=== PATIENT | male | born 1975 | race Caucasian/White ===

== ENCOUNTER 2018-05-17 13:03 | Emergency (ER) | payer MEDICARE, OTHER ==
[~2018-05-17] VITALS: Ht 167.6 cm; Wt 105.0 kg
[~2018-05-17 13:03] MED LIST: CYMBALTA60 MG PO; ELAVIL25 M1 PO; GABAPENTIN600 MG PO; GABAPENTIN800 MG PO; IMITREX50 M1 PO; TESTOSTERONE IM
[2018-05-17] MEDS ORDERED: SINGULAIR10 MG PO (13:11)
[2018-05-17] MEDS ORDERED: FEXOFENADINE60 MG PO (13:11)
[2018-05-17] MEDS ORDERED: AMITRIPTYLIN100 MG PO (13:12)
[2018-05-17] MEDS ORDERED: LYRICA150 MG PO (13:12)
[2018-05-17] MEDS ORDERED: [UNRECOGNIZED DRUG - OTHER] PO (13:14)
[2018-05-17] MEDS ORDERED: PROAIR HFA108 MCG/AC PO (14:30)
[2018-05-17] MEDS ORDERED: DOXYCYC MONO100 M2 PO (14:30)
[2018-05-17 14:59] VITALS: BP 141/84
== END 2018-05-17 14:59 | disposition home or self-care (01) ==
LOC: ED 13:03
DX: J06.9 Acute upper respiratory infection, unspecified (principal); R05 Cough; R50.9 Fever, unspecified; F17.200 Nicotine dependence, unspecified, uncomplicated; M79.7 Fibromyalgia

== ENCOUNTER 2018-05-20 18:10 | Emergency (ER) | payer MEDICARE, OTHER ==
[~2018-05-20] VITALS: Ht 167.6 cm; Wt 112.0 kg
[~2018-05-20 18:10] MED LIST changes: +AMITRIPTYLIN100 MG PO; +DOXYCYC MONO100 M2 PO; +FEXOFENADINE60 MG PO; +LYRICA150 MG PO; +PROAIR HFA108 MCG/AC PO; +SINGULAIR10 MG PO; +[UNRECOGNIZED DRUG - OTHER] PO
[2018-05-20] MEDS ORDERED: ZPAK PO (20:04)
[2018-05-20] MEDS ORDERED: ROBITUSSIN AC10 ML PO (20:04)
[2018-05-20 20:15] VITALS: BP 146/91
== END 2018-05-20 20:18 | disposition home or self-care (01) ==
LOC: ED 18:10
DX: J06.9 Acute upper respiratory infection, unspecified (principal); M79.7 Fibromyalgia; F17.200 Nicotine dependence, unspecified, uncomplicated; Z87.820 Personal history of traumatic brain injury

== ENCOUNTER 2019-01-09 06:44 | Emergency (ER) | payer MEDICARE, OTHER ==
[~2019-01-09] VITALS: Ht 167.6 cm; Wt 110.0 kg
[~2019-01-09 06:44] MED LIST changes: +ROBITUSSIN AC10 ML PO; +ZPAK PO
[2019-01-09] MEDS ORDERED: CORTISPORIN OTI10 M2 AU (07:12)
[2019-01-09] MEDS ORDERED: AMOXICILLIN500 MG PO (07:12)
[2019-01-09] MEDS ORDERED: TORADOL PO (07:12)
[2019-01-09 07:19] VITALS: BP 142/92
== END 2019-01-09 07:22 | disposition home or self-care (01) ==
LOC: ED 06:44
DX: H66.92 Otitis media, unspecified, left ear (principal); H60.92 Unspecified otitis externa, left ear

== ENCOUNTER 2019-07-10 | Emergency (ER) | payer MEDICARE, OTHER ==
[~2019-07-10] MED LIST changes: +AMOXICILLIN500 MG PO; +CORTISPORIN OTI10 M2 AU; +TORADOL PO
[2019-07-10 19:51] LABS: IMMATURE GRANULOCYTES 0.3 % (0.0-5.0); MEAN CELL VOLUME 92.7 fL CALC (80.0-100.0); MEAN CORPUSCULAR HGB 31.1 pG CALC (26.0-32.0); MEAN CORPUSCULAR HGB CONC 33.6 g/L CALC (32.0-36.0); NEUT# 8.19 thou/uL (1.82-7.42); RED BLOOD COUNT 5.33 mill/uL (4.70-6.10); RED CELL DISTRI WIDTH 13.2 % (11.5-15.5)
[2019-07-10 19:54] LABS: HEMATOCRIT 49.4 % (39.0-50.0); HEMOGLOBIN 16.6 g/dl (14.0-18.0)
[2019-07-10 20:01] LABS: ALBUMIN 4.6 g/dL (3.2-5.0); ALKALINE PHOSPHATASE 50 u/l (38-126); AMYLASE 37 u/l (30-110); BILIRUBIN, TOTAL 0.4 mg/dL (0.0-1.4); BUN 17 mg/dL (9-20); BUN/CREATININE RATIO 19 (12-20 (CALC)); CHLORIDE 96 mmol/l (95-108); CPK 149 u/l (52-200); CREATININE 0.9 mg/dL (0.7-1.3); GFR > 60 ML/MIN (>=60 (CALC)); GFR FOR AFR.AMER. > 60 ML/MIN (>=60 (CALC)); LIPASE 38 u/l (23-300); POTASSIUM 4.1 mmol/l (3.5-5.1); SGOT/AST 30 u/l (17-59); SODIUM 135 mmol/l (137-146); TOTAL PROTEIN 8.4 g/dL (6.3-8.2)
[2019-07-10 20:03] LABS: ANION GAP 14 (6-22 (CALC)); CARBON DIOXIDE 29 mmol/l (22-30)
[2019-07-10 20:10] LABS: ACT PARTIAL THROMBO TIME 24.9 SECONDS (20.0-32.5); D-DIMER 0.27 mg/L (0.19-0.60); PROTHROMBIN TIME 10.6 SECONDS (9.0-12.5)
[2019-07-10 20:14] LABS: MYOGLOBIN 61 ng/mL (0 - 121)
[2019-07-10 20:32] LABS: TSH, 3RD GENERATION 2.16 uIU/mL (0.47 - 4.68)
[2019-07-10 21:36] LABS: URINE BILIRUBIN - DIPSTICK NEGATIVE (NEGATIVE); URINE BLOOD DIPSTICK NEGATIVE (NEGATIVE); URINE COLOR YELLOW; URINE GLUCOSE - DIPSTICK NEGATIVE (NEGATIVE); URINE KETONE NEGATIVE (NEGATIVE); URINE LEUK ESTERASE NEGATIVE (NEGATIVE); URINE NITRITE - DIPSTICK NEGATIVE (Negative); URINE PH 5.5 (4.5-8.0); URINE PROTEIN - DIPSTICK NEGATIVE (NEG-TRACE); URINE UROBILINOGEN - DIPSTICK 0.2 E.U./dL (0.2)
[2019-07-10 21:47] LABS: BARBITURATES NEGATIVE (NEGATIVE); COCAINE NEGATIVE (NEGATIVE); METHADONE NEGATIVE (NEGATIVE); OXCYCODONE NEGATIVE (NEGATIVE); TETRAHYDROCANNABIONOL NEGATIVE (NEGATIVE); TRICYLIC ANTIDEPRESSANTS POSITIVE (NEGATIVE)
== END 2019-07-10 22:17 | disposition home or self-care (01) ==
PROVIDERS: Family Medicine
DX: R53.1 Weakness (principal); R53.82 Chronic fatigue, unspecified; M79.7 Fibromyalgia; R06.02 Shortness of breath

== ENCOUNTER 2019-10-07 21:50 | Observation (INO) | payer MEDICARE, OTHER ==
[~2019-10-07] VITALS: Ht 170.2 cm; Wt 117.0 kg
--- NOTE | 2019-10-07 22:40 | NUR ---
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
[2019-10-07 23:27] LABS: HEMATOCRIT 46.2 % (39.0-50.0); HEMOGLOBIN 15.9 g/dl (14.0-18.0); IMMATURE GRANULOCYTES 0.3 % (0.0-5.0); MEAN CELL VOLUME 90.9 fL CALC (80.0-100.0); MEAN CORPUSCULAR HGB 31.3 pG CALC (26.0-32.0); MEAN CORPUSCULAR HGB CONC 34.4 g/dL CAL (32.0-36.0); NEUT# 13.13 thou/uL (1.82-7.42); RED BLOOD COUNT 5.08 mill/uL (4.70-6.10)
[2019-10-07 23:31] LABS: URINE BILIRUBIN - DIPSTICK NEGATIVE (NEGATIVE); URINE BLOOD DIPSTICK NEGATIVE (NEGATIVE); URINE COLOR YELLOW; URINE GLUCOSE - DIPSTICK NEGATIVE (NEGATIVE); URINE KETONE NEGATIVE (NEGATIVE); URINE LEUK ESTERASE NEGATIVE (NEGATIVE); URINE NITRITE - DIPSTICK NEGATIVE (Negative); URINE PROTEIN - DIPSTICK NEGATIVE (NEG-TRACE); URINE SPECIFIC GRAVITY 1.025; URINE UROBILINOGEN - DIPSTICK 0.2 E.U./dL (0.2)
[2019-10-07 23:39] LABS: ALBUMIN 4.4 g/dL (3.2-5.0); ALKALINE PHOSPHATASE 52 u/l (38-126); ANION GAP 15 (6-22 (CALC)); BILIRUBIN, TOTAL 0.5 mg/dL (0.0-1.4); BUN 24 mg/dL (9-20); BUN/CREATININE RATIO 25 (12-20 (CALC)); CARBON DIOXIDE 26 mmol/l (22-30); CHLORIDE 97 mmol/l (95-108); GFR > 60 ML/MIN (>=60 (CALC)); GFR FOR AFR.AMER. > 60 ML/MIN (>=60 (CALC)); LIPASE 55 u/l (23-300); POTASSIUM 4.2 mmol/l (3.5-5.1); SGOT/AST 26 u/l (17-59); SODIUM 134 mmol/l (137-146); TOTAL PROTEIN 7.9 g/dL (6.3-8.2)
[2019-10-07 23:48] LABS: AMYLASE < 30 u/l (30-110)
--- NOTE | 2019-10-07 23:58 | NUR ---
PT REPORTS LESS PAIN FEELING BETTER TO CT
--- NOTE | 2019-10-08 00:33 | NUR ---
PAIN HAS RESOLVED.NO NAUSEA OR VOMITING W/P/D SKIN
--- NOTE | 2019-10-08 01:21 | NUR ---
PHONE REPORT TO NURSE WEST IN MED OVERFLOW
--- NOTE | 2019-10-08 01:25 | NUR ---
PT TRANSPORTED TO [facility] OVERFL[facility] ICU IN IMPROVED STABLE CONDITION
[2019-10-08 01:30] VITALS: BP 142/77
--- NOTE | 2019-10-08 01:30 | NUR ---
RECEIVED FROM ER VIA WC, AMBULATES WITH STABLE STANCE AND STEADY GAIT TO BED. RESP NON-LABORED. ABD DISTENDED, SOMEWHAT FIRM WITH ACTIVE BOWEL SOUNDS. NS STARTED TO LAC SITE AT 125 ML/HR ORDERED. ADMISSION ASESSMENT COMPLETED. ORIENTED TO SURROUNDINGS. DISCUSSED PLAN OF CARE. DENIES NEEDS AT THIS TIME.
--- NOTE | 2019-10-08 04:17 | NUR ---
RESTING WITH EYES CLOSED. RESP NON-LABORED.
[2019-10-08 05:46] LABS: HEMATOCRIT 43.5 % (39.0-50.0); HEMOGLOBIN 14.6 g/dl (14.0-18.0); IMMATURE GRANULOCYTES 0.4 % (0.0-5.0); MEAN CELL VOLUME 92.6 fL CALC (80.0-100.0); MEAN CORPUSCULAR HGB 31.1 pG CALC (26.0-32.0); MEAN CORPUSCULAR HGB CONC 33.6 g/dL CAL (32.0-36.0); NEUT# 11.11 thou/uL (1.82-7.42); RED BLOOD COUNT 4.7 mill/uL (4.70-6.10); RED CELL DISTRI WIDTH 14.1 % (11.5-15.5)
[2019-10-08 06:04] VITALS: BP 128/70
[2019-10-08 06:19] LABS: ALBUMIN 3.7 g/dL (3.2-5.0); ALKALINE PHOSPHATASE 48 u/l (38-126); ANION GAP 11 (6-22 (CALC)); BILIRUBIN, TOTAL 0.4 mg/dL (0.0-1.4); BUN 23 mg/dL (9-20); BUN/CREATININE RATIO 26 (12-20 (CALC)); CARBON DIOXIDE 27 mmol/l (22-30); CHLORIDE 99 mmol/l (95-108); CREATININE 0.9 mg/dL (0.7-1.3); GFR > 60 ML/MIN (>=60 (CALC)); GFR FOR AFR.AMER. > 60 ML/MIN (>=60 (CALC)); POTASSIUM 3.9 mmol/l (3.5-5.1); SGOT/AST 22 u/l (17-59); SODIUM 134 mmol/l (137-146); TOTAL PROTEIN 6.8 g/dL (6.3-8.2)
--- NOTE | 2019-10-08 06:23 | NUR ---
NO CHANGES TO REPORT. VSS.
[2019-10-08 08:00] VITALS: BP 134/68
--- NOTE | 2019-10-08 08:00 | NUR ---
PT RESTING IN BED. NO DISTRESS NOTED. PT STATING HE HAS PAIN. DR. DE LA ROSA NOTIFIED. PAIN MEDICATIONS TO BE ORDERED. PT NPO. RA. VOIDING VIA URINAL. DENIES ANY NEEDS AT THIS TIME. WILL CONTINUE TO MONITOR.
--- NOTE | 2019-10-08 08:25 | NUR ---
SPOKE TO PATIENTS JEREMIE AND UPDATED HER ON PATIENT STATUS.
--- NOTE | 2019-10-08 09:50 | NUR ---
DR. DE LA ROSA AT BEDSIDE TO ASSESS PT
[2019-10-08 10:22] LABS: CHOLESTEROL HDL RATIO 5.1 (<4.4 (CALC))
--- NOTE | 2019-10-08 10:42 | NUR ---
SPOKE TO PATIENTS [place] [employer] . UPDATED HER ON PATIENTS STATUS PER PATIENTS REQUEST. DELISA STATED THAT THE PATIENT HAS A HISTORY OF [place] VIRUS AND TAKES WEEKLY TESTOSTERONE INJECTIONS AND THYMUS PMG. DR DE LA ROSA NOTIFIED. NO NEW ORDERS.
[2019-10-08 12:40] VITALS: BP 133/78
--- NOTE | 2019-10-08 12:40 | NUR ---
PT TRANSFERRD FROM ICU VIA WC WITH STAFF AND ALL BELONGINGS.
--- NOTE | 2019-10-08 12:40 | NUR ---
REPORT GIVEN TO ECTOR. PT TRANSFERRED TO [facility]. PT IN STABLE CONDITION. BELONGINGS, MEDICATION AND MEDICAL CHART SENT WITH PATIENT
[2019-10-08] MEDS ORDERED: TESTOSTERONE IM (13:11)
[2019-10-08 15:24] VITALS: BP 123/76
--- NOTE | 2019-10-08 17:00 | NUR ---
PT IS RELAXING IN BED WITH NO DISTRESS NOTED. IV SITE IS FREE FROM REDNESS OR EDEMA. CONTINUE TO OSBERVE AND MONITOR.
[2019-10-08 18:24] VITALS: BP 114/50
--- NOTE | 2019-10-08 19:57 | NUR ---
PT. SITTING UP IN BED WATCHING TV. NO RESP. DISTRESS NOTED; ASSESSMENT COMPLETED. IV SITE PATENT WITH ORDERED IVF INFUSING WELL. PT. C/O LLQ PAIN AND PRADO 12/16; MEDICATED WITH ORDERED PRN LORTAB; WILL REASSESS. PT. TOLERATING PO WELL. ENCOURAGED TO CALL FOR ANY NEEDS. CALL LIGHT IS IN REACH. WILL CONTINUE TO MONITOR.
--- NOTE | 2019-10-08 23:00 | NUR ---
RESTING IN BED WITH EYES CLOSED; RESP. EVEN AND UNLABORED. CALL LIGHT IS IN REACH. AROUSES EASILY AND DENIES NEEDS.
--- NOTE | 2019-10-09 03:00 | NUR ---
PT. RESTING IN BED WITH EYES CLOSED; RESP. EVEN AND UNLABORED.
[2019-10-09 03:45] VITALS: BP 114/56
--- NOTE | 2019-10-09 04:33 | NUR ---
PT. DENIES NEEDS FOR PAIN MEDS AT THIS TIME. URINAL EMPTIED. NEW BAG OF ORDERED IVF HUNG. CALL LIGHT IS IN REACH.
[2019-10-09 07:24] VITALS: BP 121/76
--- NOTE | 2019-10-09 07:24 | NUR ---
PT SITTING IN BED. A&O X3. NO DISTRESS NOTED. PT DENIES ANY ABD PAIN AT THIS TIME. PER PT HE HAS BEEN TOLERATING FULL LIQUID DIET WELL. DENIES ANY N&V. NO OTHER NEEDS AT THIS TIME. ASSESSMENT COMPLETED. DISCUSSED POC. CALL LIGHT IN REACH. CONTINUE TO MONITOR.
[2019-10-09] MEDS ORDERED: PANTOPRAZOLE SO40 M1 PO (13:02)
--- NOTE | 2019-10-09 13:38 | NUR ---
D/C INSTRUCTIONS GIVEN TO PT. PT VERBALIZES UNDERSTANDING. IV INTACT UPON REMOVAL.
--- NOTE | 2019-10-09 13:43 | NUR ---
Discharge instructions given. Patient verbalizes understanding of same. Discharged in stable condition via Ambulatory to Home with staff. All belongings sent with pt.
== END 2019-10-09 13:38 | disposition home or self-care (01) ==
LOC: ED 21:50 → ED-I 10-08 00:44 → ED 10-08 00:57 → ICU 10-08 00:58 → MS2 10-08 12:36
PROVIDERS: Emergency Medicine; Internal Medicine; ADMIT Internal Medicine; ATTEND Internal Medicine
DX: K85.90 Acute pancreatitis without necrosis or infection, unspecified (principal); I10 Essential (primary) hypertension; M79.7 Fibromyalgia; M48.00 Spinal stenosis, site unspecified; Z87.891 Personal history of nicotine dependence
CPT/HCPCS: G0378; Q9967

== ENCOUNTER 2020-07-14 19:36 | Observation (INO) | payer OTHER, MEDICARE ==
[~2020-07-14] VITALS: Ht 170.2 cm; Wt 113.0 kg
[~2020-07-14 19:36] MED LIST changes: +PANTOPRAZOLE SO40 M1 PO
--- NOTE | 2020-07-14 19:50 | NUR ---
AMBULATED TO ROOM WITH STEADY GAIT.
[2020-07-14 20:22] LABS: IMMATURE GRANULOCYTES 0.3 % (0.0-5.0); MEAN CELL VOLUME 91.2 fL CALC (80.0-100.0); NEUT# 14.52 thou/uL (1.82-7.42); RED BLOOD COUNT 5.48 mill/uL (4.70-6.10); RED CELL DISTRI WIDTH 13.3 % (11.5-15.5); URINE BILIRUBIN - DIPSTICK NEGATIVE (NEGATIVE); URINE BLOOD DIPSTICK NEGATIVE (NEGATIVE); URINE COLOR YELLOW; URINE GLUCOSE - DIPSTICK 250 mg/dL (NEGATIVE); URINE KETONE NEGATIVE (NEGATIVE); URINE LEUK ESTERASE NEGATIVE (NEGATIVE); URINE NITRITE - DIPSTICK NEGATIVE (Negative); URINE PH 6.5 (4.5-8.0); URINE PROTEIN - DIPSTICK TRACE mg/dL (NEG-TRACE); URINE SPECIFIC GRAVITY 1.025; URINE UROBILINOGEN - DIPSTICK 0.2 E.U./dL (0.2)
--- NOTE | 2020-07-14 20:30 | NUR ---
RESTING QUIETLY. NAD.
[2020-07-14 20:35] LABS: ALKALINE PHOSPHATASE 57 u/l (38-126); AMYLASE 54 u/l (30-110); ANION GAP 13 (6-22 (CALC)); BUN 16 mg/dL (9-20); BUN/CREATININE RATIO 17 (12-20 (CALC)); CARBON DIOXIDE 30 mmol/l (22-30); CHLORIDE 95 mmol/l (95-108); CREATININE 0.9 mg/dL (0.7-1.3); GFR > 60 ML/MIN (>=60 (CALC)); GFR FOR AFR.AMER. > 60 ML/MIN (>=60 (CALC)); LIPASE 188 u/l (23-300); POTASSIUM 4.2 mmol/l (3.5-5.1); SGOT/AST 24 u/l (17-59); SODIUM 133 mmol/l (137-146)
[2020-07-14 20:39] LABS: ALBUMIN 4.7 g/dL (3.2-5.0); BILIRUBIN, TOTAL 0.6 mg/dL (0.0-1.4); TOTAL PROTEIN 8.2 g/dL (6.3-8.2)
--- NOTE | 2020-07-14 21:30 | NUR ---
AMBULATED TO BR.
--- NOTE | 2020-07-14 22:30 | NUR ---
APPEARS COMFORTABLE. NO CHANGE IN EXAM.
--- NOTE | 2020-07-14 23:40 | NUR ---
Admission Note Report Given to: AGUSTIN MARTINEZ Transported by: X Wheelchair Stretcher Transported with: X Nurse Transporter X Patent IV O2 Electrode Cleaning Machine Operator Location: ICU X MS2
[2020-07-15] VITALS: BP 164/87
--- NOTE | 2020-07-15 00:49 | NUR ---
PT ARRIVED TO THE FLOOR VIA W/C ESCORTED BY ER STAFF. ORIENTED PT TO HS ROOM, CALL PEDRO, AND BED CONTROLS. BREATHING IS EVEN AND UNLABORED. REPORTS ABDOMINAL PAIN WITH BACK PAIN. MEDICATED PER ORDER. IV SITE TO RAC NS 125/HR. NO S/S OF INFECTION, INFILTRATION, OR OCCLUSION NOTED. VERY PLEASENT PT, VERY INDEPENDENT. SKILLED TEACHING WITH PT ON THE IMPORTANCE OF ASKING FOR HELP BEFORE AMBULATING OR TOILETING. INSTRUCTED PT THAT DUE TO IV MORPHINE HE MAY BE UNSTEADY ON HIS FEET. PT INDICATED UNDERSTANDING VERBALLY TO INSTRUCTION GIVEN. PT ALERT AND ORIENTED. NO COMPLAINTS VOICED AT THIS TIME. NO OPEN SKIN AREAS NOTED. WILL MONITOR.
--- NOTE | 2020-07-15 03:59 | NUR ---
PATIENT FOUND UP IN ROOM-RETURNED TO BED. C/O SEVERE ABD AND HEAD PAIN-MEDICATED FOR PAIN 10/ PER PATIENT WITH MORPHINE 2MG IVP VIA RAC SITE. REMAINS NPO AT THIS TIME. IVF NS PATENT AND INFUSING AT 125CC/HR. SAFETY PRECAUTIONS REINFORCED. CALL LIGHT IN REACH. WILL CONT TO MONITOR
[2020-07-15 04:00] VITALS: BP 136/68
[2020-07-15 05:23] LABS: ALKALINE PHOSPHATASE 53 u/l (38-126); ANION GAP 12 (6-22 (CALC)); BILIRUBIN, TOTAL 0.7 mg/dL (0.0-1.4); BUN 13 mg/dL (9-20); BUN/CREATININE RATIO 15 (12-20 (CALC)); CARBON DIOXIDE 26 mmol/l (22-30); CHLORIDE 96 mmol/l (95-108); CREATININE 0.8 mg/dL (0.7-1.3); GFR > 60 ML/MIN (>=60 (CALC)); GFR FOR AFR.AMER. > 60 ML/MIN (>=60 (CALC)); SGOT/AST 21 u/l (17-59); SODIUM 131 mmol/l (137-146); TOTAL PROTEIN 6.9 g/dL (6.3-8.2)
[2020-07-15 05:49] LABS: HEMATOCRIT 45.8 % (39.0-50.0); HEMOGLOBIN 15.6 g/dl (14.0-18.0); IMMATURE GRANULOCYTES 0.5 % (0.0-5.0); MEAN CORPUSCULAR HGB 31.3 pG CALC (26.0-32.0); MEAN CORPUSCULAR HGB CONC 34.1 g/dL CAL (32.0-36.0); NEUT# 12.73 thou/uL (1.82-7.42); RED BLOOD COUNT 4.98 mill/uL (4.70-6.10); RED CELL DISTRI WIDTH 13.6 % (11.5-15.5)
[2020-07-15 07:00] VITALS: BP 140/91
--- NOTE | 2020-07-15 07:10 | NUR ---
PT REPORT RECEIVED FROM NIGHT NURSE, AGUSTIN BURTON.
--- NOTE | 2020-07-15 08:30 | NUR ---
PT WAS FOUND RESTING IN BED; PT IS A&O X4; PT REPORTS PAIN IN ABDOMEN 03/18;PT MEDICATED AND COMFORT MEASURES WERE PROVIDED; VITAL SIGNS WERE TAKEN AND ASSESSMENT WAS COMPLETED; PT ABDOMEN IS SOFT AND SOMEWHAT DISTENDED;BOWEL SOUNDS WERE PRESENT AND ACTIVE;PT REPORTS PAIN HAS GRADUALLY MOVED FROM UPPER ABDOMEN TO MOSTLY LOWER AT THIS TIME; LAST BM 07/14/20;PT REPORTS NO ISSUES WITH VOIDING OF URINE; HEART SOUNDS WERE REGULAR IN RATE AND RHYTHM;LUNG SOUNDS WERE CLEAR IN ALL SHOEMAKER;RESPIRATIONS WERE REGULAR AND NON-LABORED ON RA;RADIAL AND PEDAL PULSES WERE STRONG BILATERALLY; NO EDEMA NOTED TO LOWER EXTREMETIES; IV #20G IN RAC WITH NS RUNNING @125ML/HR;IV SITE IS PATENT AND FREE OF COMPLICATIONS; SAFETY PRECAUTIONS IN PLACE; CALL LIGHT WITHIN REACH;BED IN LOWEST POSITION;PT INSTRUCTED TO CALL IF ANY CONCERNS OR NEEDS; WILL CONTINUE TO MONITOR;
--- NOTE | 2020-07-15 12:00 | NUR ---
PT WAS FOUND UP AND AMBULATING AROUND HIS ROOM;HE HAD NO COMPLAINTS OF PAIN AT THIS TIME;SAFETY PRECAUTIONS IN PLACE; CALL LIGHT LEFT WITHIN REACH;BED IN LOWEST POSITION; WILL CONTINUE TO MONITOR.
[2020-07-15 15:08] VITALS: BP 119/62
--- NOTE | 2020-07-15 16:10 | NUR ---
PT WAS RESTING IN BED; PT REPORTS NO PAIN AT THIS TIME;SAFETY PRECAUTIONS IN PLACE; CALL LIGHT WITHIN REACH;BED IN LOWEST POSITION;WILL CONTINUE TO MONITOR.
[2020-07-15 20:00] VITALS: BP 124/70
--- NOTE | 2020-07-15 20:00 | NUR ---
PHYSICAL ASSESMENT COMPLETE. PT CURRENTLY DENIES PAIN OR DISCOMFORT. SCHEDULED MEDICATIONS AND PRN MEDICATION ADMINISTERED, SEE E-MAR. PT DENIES ANY NEEDS AT THIS TIME. PLAN OF CARE REVIEWED, PT DENIES QUESTIONS, VERBALIZES UNDERSTANDING. ITEMS WITHIN REACH, BED LOCKED IN LOW POSITION W/ BEDRAILS UP X2. CALL PEDRO WITHIN REACH, AGREES TO CALL PRN.
--- NOTE | 2020-07-16 00:04 | NUR ---
PT LAYING IN BED WITH EYES CLOSED, APPEARS TO BE SLEEPING, APPEARS COMFORTABLE AND IN NO DISTRESS. RESPIRATIONS REGULAR AND UNLABORED. ITEMS REMAIN WITHIN REACH, CALL PEDRO REMAINS WITHIN REACH. BED REMAINS LOCKED AND IN LOW POSITION WITH BEDRAILS UP X2. WILL CONTINUE TO MONITOR.
[2020-07-16 04:00] VITALS: BP 100/57
--- NOTE | 2020-07-16 04:40 | NUR ---
PT RESTING IN BED, NO SIGNS OF DISTRESS NOTED, RESP EVEN AND UNLABORED. PT VOICES NO NEEDS OR COMPLAINTS AT THIS TIME. CALL LIGHT IN REACH, CONTINUE TO MONITOR.
[2020-07-16 05:30] LABS: HEMATOCRIT 42.7 % (39.0-50.0); HEMOGLOBIN 13.9 g/dl (14.0-18.0); MEAN CELL VOLUME 94.9 fL CALC (80.0-100.0); MEAN CORPUSCULAR HGB 30.9 pG CALC (26.0-32.0); MEAN CORPUSCULAR HGB CONC 32.6 g/dL CAL (32.0-36.0); RED BLOOD COUNT 4.5 mill/uL (4.70-6.10); RED CELL DISTRI WIDTH 13.7 % (11.5-15.5)
[2020-07-16 05:57] LABS: ANION GAP 10 (6-22 (CALC)); BUN 13 mg/dL (9-20); BUN/CREATININE RATIO 18 (12-20 (CALC)); CARBON DIOXIDE 28 mmol/l (22-30); CHLORIDE 100 mmol/l (95-108); CREATININE 0.7 mg/dL (0.7-1.3); GFR > 60 ML/MIN (>=60 (CALC)); GFR FOR AFR.AMER. > 60 ML/MIN (>=60 (CALC)); LIPASE 50 u/l (23-300); POTASSIUM 4.2 mmol/l (3.5-5.1); SODIUM 134 mmol/l (137-146)
--- NOTE | 2020-07-16 07:15 | NUR ---
PT REPORT RECEIVED FROM NIGHT NURSEJYOTI RN
[2020-07-16 07:59] VITALS: BP 126/85
--- NOTE | 2020-07-16 08:00 | NUR ---
PT WAS FOUND SITTING ON THE SIDE OF THE BED;PT REPORTED A SLIGHT HEADACHE WITH PAIN 4/10; PT WAS GIVEN TYLENOL WITH MORNING MEDS;VITAL SIGNS AND ASSESSMENTS WERE COMPLETED;VS WERE WITHIN NORMAL LIMITS; IV #20G IN RAC WAS PATENT AND FREE OF COMPLICATIONS WITH NS RUNNING AT 125 ML/HR; PT REPORTED NO ISSUES WITH URINATION;PT IS ON A FULL LIQUID DIET; SAFETY PRECAUTIONS IN PLACE;CALL LIGHT LEFT WITHIN REACH;PT INSTRUCTED TO CALL WITH ANY NEEDS OR CONCERNS; WILL CONTINUE TO MONITOR.
[2020-07-16] MEDS ORDERED: PANTOPRAZOLE SO40 M1 PO (09:45)
--- NOTE | 2020-07-16 11:40 | NUR ---
ALL DISCHARGE INSTRUCTIONS PROVIDED AT THIS TIME;PT INSTRUCTED TO F/U WITH PCP,TAKE [facility] DIRECTED WHICH WAS SENT TO [facility] AND F/U WITH A GEM SETTER;PT VERBALIZES UNDERSTANDING AND DENIES ANY ADDITIONAL NEEDS;WHEELCHAIR TO BE PROVIDED FOR D/C;FAMILY TO TRANSPORT PT HOME AFTER LUNCH;WILL CONTINUE TO MONITOR
--- NOTE | 2020-07-16 12:20 | NUR ---
Discharge instructions given. Patient verbalizes understanding of same. Discharged in stable condition via Ambulatory to Home with family. All belongings sent with pt. PT AMBULATED TO [facility] IN STABLE CONDITION (REFUSING WHEELCHAIR) FOR DISCHARGE HOME;FAMILY TO TRANSPORT PT HOME;ALL BELONGINGS LEFT WITH PT.
== END 2020-07-16 12:20 | disposition home or self-care (01) | DRG 392 ==
LOC: ED 19:36 → ED-I 20:21 → ED 21:54 → MS2 21:55
PROVIDERS: Emergency Medicine; Nurse Practitioner; ADMIT Internal Medicine; ATTEND Internal Medicine
DX: R10.13 Epigastric pain (principal); R00.0 Tachycardia, unspecified; D72.829 Elevated white blood cell count, unspecified; I10 Essential (primary) hypertension; E87.1 Hypo-osmolality and hyponatremia; K31.84 Gastroparesis; R53.82 Chronic fatigue, unspecified; M79.7 Fibromyalgia; Z90.49 Acquired absence of other specified parts of digestive tract; Z87.891 Personal history of nicotine dependence; Z87.820 Personal history of traumatic brain injury; Z20.822 Contact with and (suspected) exposure to COVID-19
CPT/HCPCS: Q9967; S0164

== ENCOUNTER 2021-03-29 00:40 | Emergency (ER) | payer OTHER, MEDICARE ==
[~2021-03-29] VITALS: Ht 170.2 cm; Wt 106.0 kg
[2021-03-29 01:32] LABS: IMMATURE GRANULOCYTES 0.1 % (0.0-5.0); MEAN CELL VOLUME 91.9 fL CALC (80.0-100.0); MEAN CORPUSCULAR HGB 31.3 pG CALC (26.0-32.0); MEAN CORPUSCULAR HGB CONC 34.1 g/dL CAL (32.0-36.0); NEUT# 9.19 thou/uL (1.82-7.42); RED BLOOD COUNT 5.3 mill/uL (4.70-6.10); RED CELL DISTRI WIDTH 12.9 % (11.5-15.5)
[2021-03-29 01:32] LABS: URINE BILIRUBIN - DIPSTICK NEGATIVE (NEGATIVE); URINE BLOOD DIPSTICK NEGATIVE (NEGATIVE); URINE COLOR YELLOW; URINE GLUCOSE - DIPSTICK NEGATIVE (NEGATIVE); URINE KETONE NEGATIVE (NEGATIVE); URINE LEUK ESTERASE NEGATIVE (NEGATIVE); URINE PROTEIN - DIPSTICK NEGATIVE (NEG-TRACE); URINE UROBILINOGEN - DIPSTICK 0.2 E.U./dL (0.2)
[2021-03-29 01:39] LABS: HEMATOCRIT 48.7 % (39.0-50.0); HEMOGLOBIN 16.6 g/dl (14.0-18.0)
[2021-03-29 01:39] LABS: URINE NITRITE - DIPSTICK NEGATIVE (Negative)
[2021-03-29 01:47] LABS: ALBUMIN 4.6 g/dL (3.2-5.0); ALKALINE PHOSPHATASE 57 u/l (38-126); AMYLASE 49 u/l (30-110); ANION GAP 17 (6-22 (CALC)); BILIRUBIN, TOTAL 0.6 mg/dL (0.0-1.4); BUN 16 mg/dL (9-20); BUN/CREATININE RATIO 20 (12-20 (CALC)); CARBON DIOXIDE 28 mmol/l (22-30); CHLORIDE 95 mmol/l (95-108); CREATININE 0.8 mg/dL (0.7-1.3); GFR > 60 ML/MIN (>=60 (CALC)); GFR FOR AFR.AMER. > 60 ML/MIN (>=60 (CALC)); LIPASE 53 u/l (23-300); POTASSIUM 3.9 mmol/l (3.5-5.1); SGOT/AST 24 u/l (17-59); SODIUM 136 mmol/l (137-146)
[2021-03-29 01:54] LABS: TOTAL PROTEIN 8.4 g/dL (6.3-8.2)
[2021-03-29] MEDS ORDERED: CITRATE OF MEGNESIA PO (02:10)
[2021-03-29] MEDS ORDERED: MIRALAX17 GM PO (02:10)
[2021-03-29 02:25] VITALS: BP 121/73
== END 2021-03-29 02:28 | disposition home or self-care (01) | DRG 392 ==
LOC: ED 00:40
PROVIDERS: Family Medicine
DX: K59.00 Constipation, unspecified (principal); I10 Essential (primary) hypertension; R53.82 Chronic fatigue, unspecified; Z87.820 Personal history of traumatic brain injury